=== PATIENT | female | born 1995 | race Caucasian/White ===

== ENCOUNTER 2016-12-21 10:07 | Emergency (ER) | payer OTHER ==
[~2016-12-21] VITALS: Ht 177.8 cm; Wt 69.0 kg
[2016-12-21] MEDS ORDERED: SODIUM CHLORIDE FLUSH 10ML SYR IVF ONE (10:30)
[2016-12-21 11:06] LABS: HEMATOCRIT 44.3 % (34.6-47.8); HEMOGLOBIN 15.2 g/dL (11.7-16.4); WHITE BLOOD COUNT 10.6 x10^3/uL (3.4-10)
[2016-12-21 11:17] LABS: BLOOD UREA NITROGEN 9 mg/dL (7-18)
[2016-12-21 11:22] LABS: ASPARTATE AMINO TRANSFERASE 13 U/L (15-37)
[2016-12-21] MEDS ORDERED: SODIUM CHLORIDE 0.9% 1,000ML IVBOLUS ONE (11:30)
[2016-12-21] MEDS ORDERED: ONDANSETRON 2MG/ML, 2ML IVPush ONE (11:30)
[2016-12-21] MEDS ORDERED: BIRTH CONTROL (12:14)
[2016-12-21 14:02] VITALS: BP 129/77
== END 2016-12-21 14:32 | disposition home or self-care (01) ==
LOC: ED 14:12
DX: A09 Infectious gastroenteritis and colitis, unspecified (principal)
CPT/HCPCS: 36415; 74177; 80053; 84703; 85025; 87324; 89055; 93005; 96360; 96361; 99285; J7030

== ENCOUNTER 2019-06-24 21:29 | Emergency (ER) | payer OTHER ==
[~2019-06-24] VITALS: Ht 175.3 cm; Wt 68.2 kg
[~2019-06-24 21:29] MED LIST: BIRTH CONTROL
[2019-06-24 21:38] VITALS: BP 144/100
--- NOTE | 2019-06-24 21:54 | NUR ---
PT TO ED WITH OCCASIONAL SOB AND THROAT TIGHTNESS X1 HOUR, PT BELIEVES IT TO BE ALLERGIC REACTION. PT DENIES ANY KNOWN ALLERGIES. PT TOOK BENADRYL AT HOME. CALL LIGHT WTIHIN REACH, SPO2 MONITORING IN PLACE. FRIEND AT FOR SUPPORT.
== END 2019-06-24 22:49 | disposition home or self-care (01) ==
LOC: ED 22:45
DX: T78.1XXA Other adverse food reactions, not elsewhere classified, initial encounter (principal); X58.XXXA Exposure to other specified factors, initial encounter
CPT/HCPCS: 99281